=== PATIENT | female | born 1960 | race Caucasian/White ===

== ENCOUNTER → 2018-02-05 | Day surgery (SDC) | payer OTHER ==
[~2018-02-05] VITALS: Ht 154.9 cm; Wt 56.8 kg
[~2018-02-05] MED LIST: BENZOCAINE 20% 50 MCG/SPRAY 57 GM TP ONE; FentaNYL CITRATE-PF 100 MCG/2 ML VIAL ONE; LIDOCAINE HCL 2% 5 ML JELLY TP ONE; LIDOCAINE HCL 4% 50 ML SOLUTION TP ONE; METF500T4 PO; MIDAZOLAM HCL 2 MG/2 ML VIAL ONE; MethylPREDNISolone SOD SUCC 125 MG/2 ML VIAL IVP ONE; MethylPREDNISolone SOD SUCC 125 MG/2 ML VIAL ONE; OXYGEN THERAPY IH SCH; SODIUM CHLORIDE 0.9% 1,000 ML IV ONE
[2018-02-05 08:22] LABS: GLUCOMETER DEV NAME(LOC) SDS 5; GLUCOSE,POINT OF CARE 124 MG/DL (70-110)
== END | disposition home or self-care (01) ==
LOC: SURGERY 07:13
PROVIDERS: ATTEND Internal Medicine Critical Care Medicine
DX: J38.4 Edema of larynx (principal); B37.0 Candidal stomatitis; J44.9 Chronic obstructive pulmonary disease, unspecified; K21.9 Gastro-esophageal reflux disease without esophagitis; E11.9 Type 2 diabetes mellitus without complications; Z79.84 Long term (current) use of oral hypoglycemic drugs; Z98.890 Other specified postprocedural states
CPT/HCPCS: 31623; 31624; 71045; 82962; 87015; 87070; 87205; 87220; 88108; 88312; J2250; J2930; J3010; J7030

== ENCOUNTER 2018-10-21 01:00 | Emergency (ER) | payer OTHER ==
[~2018-10-21] VITALS: Ht 154.9 cm; Wt 53.0 kg
[~2018-10-21 01:00] MED LIST changes: -BENZOCAINE 20% 50 MCG/SPRAY 57 GM TP ONE; -FentaNYL CITRATE-PF 100 MCG/2 ML VIAL ONE; -LIDOCAINE HCL 2% 5 ML JELLY TP ONE; -LIDOCAINE HCL 4% 50 ML SOLUTION TP ONE; +METF-960 PO; -METF500T4 PO; -MIDAZOLAM HCL 2 MG/2 ML VIAL ONE; -MethylPREDNISolone SOD SUCC 125 MG/2 ML VIAL IVP ONE; -MethylPREDNISolone SOD SUCC 125 MG/2 ML VIAL ONE; -OXYGEN THERAPY IH SCH; -SODIUM CHLORIDE 0.9% 1,000 ML IV ONE
[2018-10-21 01:08] VITALS: BP 141/68
[2018-10-21] MEDS ORDERED: FISH1CAP27 PO (01:12)
[2018-10-21] MEDS ORDERED: VITA400T9 PO (01:12)
[2018-10-21 01:14] LABS: GLUCOSE,POINT OF CARE 181 MG/DL (70-110)
== END 2018-10-21 02:02 | disposition home or self-care (01) ==
LOC: EMS 01:01
DX: T78.1XXA Other adverse food reactions, not elsewhere classified, initial encounter (principal); S00.83XA Contusion of other part of head, initial encounter; S00.03XA Contusion of scalp, initial encounter; S10.83XA Contusion of other specified part of neck, initial encounter; E11.65 Type 2 diabetes mellitus with hyperglycemia; W22.8XXA Striking against or struck by other objects, initial encounter; Z79.84 Long term (current) use of oral hypoglycemic drugs; X58.XXXA Exposure to other specified factors, initial encounter; Y93.89 Activity, other specified; Y92.89 Other specified places as the place of occurrence of the external cause; Y99.8 Other external cause status

== ENCOUNTER 2019-01-21 20:56 | Emergency (ER) | payer OTHER ==
[~2019-01-21] VITALS: Ht 154.9 cm; Wt 52.3 kg
[~2019-01-21 20:56] MED LIST changes: +FISH1CAP27 PO; +VITA400T9 PO
[2019-01-21 21:58] LABS: GLUCOSE,POINT OF CARE 146 MG/DL (70-110)
[2019-01-21] MEDS ORDERED: METF-960 PO (22:03)
[2019-01-21] MEDS ORDERED: LIDOCAINE 1% 10 ML VIAL INJ ONE (22:45)
[2019-01-22 00:26] VITALS: BP 121/74
== END 2019-01-22 00:42 | disposition home or self-care (01) ==
LOC: EMS 20:56
DX: S61.011A Laceration without foreign body of right thumb without damage to nail, initial encounter (principal); E11.9 Type 2 diabetes mellitus without complications; Z79.84 Long term (current) use of oral hypoglycemic drugs; W45.8XXA Other foreign body or object entering through skin, initial encounter; Y93.89 Activity, other specified; Y92.89 Other specified places as the place of occurrence of the external cause; Y99.8 Other external cause status
CPT/HCPCS: 12001; 82962; 99283; J3490

== ENCOUNTER → 2023-12-07 | Outpatient (CLI) | payer OTHER ==
[~2023-12-07] MED LIST changes: +METF-1211 PO; -METF-960 PO
== END | disposition home or self-care (01) ==
LOC: RADMN 15:05
PROVIDERS: ATTEND Physical Medicine & Rehabilitation
DX: M47.25 Other spondylosis with radiculopathy, thoracolumbar region (principal); M25.78 Osteophyte, vertebrae; M48.05 Spinal stenosis, thoracolumbar region
CPT/HCPCS: 72114